=== PATIENT | male | born 1965 | race Caucasian/White ===

== ENCOUNTER 2020-07-25 11:29 | Inpatient (IN) | payer MEDICAID ==
[~2020-07-25] VITALS: Ht 180.3 cm; Wt 92.2 kg
[~2020-07-25 11:29] MED LIST: AMIT25TA10 PO; ARIP15TA3 PO; ASPI-1265 PO; DOCU-28 PO; ENAL-79 PO; FLO0.4C PO; GLIM4TAB7 PO; HCTZ PO; HYDR-3965 PO; HYDR200T84 PO; HYDROXYZINE 25 MG PO; METF500T PO; SIMV-42 PO; TEMA15CA5 PO; TRAZ-251 PO; VENL-190 PO
[2020-07-25] MEDS ORDERED: aspirin 81mg tab.chew PO ONE (11:45)
[2020-07-25] MEDS ORDERED: ondansetron/PF 4mg/2ml inj IV ONE (12:15)
[2020-07-25] MEDS ORDERED: nitroGLYCERIN 0.4mg SUBLingual tab SL PRN ×2 (12:15→13:50)
[2020-07-25] MEDS ORDERED: normal saline 1000ML IV soln IVB ONE (12:15)
[2020-07-25] MEDS ORDERED: iohexol 350MG/ML 100ml bottle IV ONE (12:15)
[2020-07-25 12:23] LABS: BASOPHILS % (AUTO) 0.2 % (0-1); EOSINOPHILS # (AUTO) 0.1 X10'3 (0-0.9); EOSINOPHILS % (AUTO) 0.8 % (0-6); HEMATOCRIT 47.9 % (42.0-52.0); HEMOGLOBIN 16.3 g/dl (14.0-17.9); LYMPHOCYTES # (AUTO) 1.4 X10'3 (1.1-4.8); LYMPHOCYTES % (AUTO) 12.9 % (21-51); MEAN CORPUSCULAR HEMOGLOBIN 32.8 PG (27.0-31.0); MEAN CORPUSCULAR VOLUME 96.7 FL (78-98); MEAN PLATELET VOLUME 7.1 FL (7.4-10.4); MONOCYTES # (AUTO) 0.7 X10'3 (0-0.9); MONOCYTES % (AUTO) 6.2 % (2-12); NEUTROPHILS # (AUTO) 8.9 X10'3 (1.8-7.7); NEUTROPHILS % (AUTO) 79.9 % (42-75); PLATELET COUNT 371 X10'3 (140-440); RED BLOOD COUNT 4.95 X10'6 (4.70-6.10); RED CELL DISTRIBUTION WIDTH 13.2 % (11.5-14.5); WHITE BLOOD COUNT 11.2 X10'3 (4.5-11.0)
[2020-07-25 12:33] LABS: ALANINE AMINOTRANSFERASE 25 U/L (12-78); ALBUMIN 4.4 G/DL (3.4-5.0); ALBUMIN/GLOBULIN RATIO 1.4 (1.1-1.5); ALKALINE PHOSPHATASE 75 IU/L (46-116); ANION GAP 7 (8-16); ASPARTATE AMINO TRANSFERASE 21 U/L (10-37); BILIRUBIN,TOTAL 1.1 MG/DL (0.1-1.0); BLOOD UREA NITROGEN 20 MG/DL (7-18); BUN/CREATININE RATIO 16.7 (5.4-32.0); CALCIUM 9.7 MG/DL (8.5-10.1); CHLORIDE 101 MMOL/L (99-107); GLUCOSE 192 MG/DL (70-104); POTASSIUM 3.7 MMOL/L (3.5-5.1); SODIUM 138 MMOL/L (135-145); TOTAL CARBON DIOXIDE 29.8 MMOL/L (24-32); TOTAL PROTEIN 7.5 G/DL (6.4-8.2); eGFR 63 ML/MIN
[2020-07-25] MEDS ORDERED: magnesium hydroxide 30ml (MOM) UD suspension PO PRN (13:50)
[2020-07-25] MEDS ORDERED: acetaminophen 325mg tablet PO PRN ×2 (13:50)
[2020-07-25] MEDS ORDERED: ondansetron/PF 4mg/2ml inj IV PRN (13:50)
[2020-07-25] MEDS ORDERED: morphine 2 MG/ML inj. syringe IV PRN (13:50)
[2020-07-25] MEDS ORDERED: mag hydrox/Alum hydrox/simeth 30ml oral suspension PO PRN (13:50)
[2020-07-25] MEDS ORDERED: HYDROcodone/acetaminophen 5mg/325mg tablet PO PRN (13:50)
[2020-07-25] MEDS ORDERED: HYDROcodone/acetaminophen 10/325mg tab PO PRN (13:50)
[2020-07-25] MEDS ORDERED: nitroGLYCERIN-Tridil 50MG/D5W 250 ML IV SCH (14:05)
[2020-07-25] MEDS ORDERED: MESSAGE TO PHARMACY PO ONE (14:10)
[2020-07-25] MEDS ORDERED: dextrose 50%-water 50ml dispensing syringe IV PRN ×2 (14:10)
[2020-07-25] MEDS ORDERED: dextrose ORAL solution 15 GM/59 ML bottle PO PRN ×2 (14:10)
[2020-07-25] MEDS ORDERED: glucagon, human recombinant 1mg kit SUBCUT PRN (14:10)
[2020-07-25] MEDS ORDERED: insulin Lispro (HumaLOG) vial - multi-dose SQ SCH (14:10)
[2020-07-25] MEDS ORDERED: SIMV40TA PO (14:13)
[2020-07-25] MEDS ORDERED: NAPR-56 PO (14:13)
[2020-07-25] MEDS ORDERED: NITR0.4T48 SL (14:13)
[2020-07-25] MEDS ORDERED: HYDR12.55 PO (14:13)
[2020-07-25] MEDS ORDERED: FOLI0.4T2 PO (14:13)
[2020-07-25] MEDS ORDERED: VITAMIN D 5000 UNITS PO (14:13)
[2020-07-25] MEDS ORDERED: METH2.5T PO (14:13)
[2020-07-25] MEDS ORDERED: OMEP20TA23 PO (14:14)
--- NOTE | 2020-07-25 15:00 | NUR ---
NITROGLYCERIN DRIP STARTED AND INFUSING WELL AT 5 MCG/MIN.
[2020-07-25] MEDS: morphine 2 MG/ML inj. syringe IV PRN ×3 (15:18→23:24)
[2020-07-25] MEDS ORDERED: CHOL500050 PO (16:11)
[2020-07-25] MEDS ORDERED: INSU100I31 SQ (16:11)
[2020-07-25 20:00] VITALS: BP 116/69
[2020-07-25] MEDS: insulin glargine (Lantus) pen - multi-dose SQ SCH (21:00)
[2020-07-25 22:00] VITALS: BP 121/71
[2020-07-26] VITALS (12 sets, daily range): BP systolic 109–162; BP diastolic 63–90
[2020-07-26 03:06] LABS: BASOPHILS % (AUTO) 0.5 % (0-1); EOSINOPHILS # (AUTO) 0.3 X10'3 (0-0.9); EOSINOPHILS % (AUTO) 3.2 % (0-6); HEMATOCRIT 43.6 % (42.0-52.0); HEMOGLOBIN 14.8 g/dl (14.0-17.9); LYMPHOCYTES % (AUTO) 25.9 % (21-51); MEAN CORPUSCULAR HEMOGLOBIN 32.9 PG (27.0-31.0); MEAN CORPUSCULAR HGB CONC 33.8 g/dL (33.0-36.5); MEAN CORPUSCULAR VOLUME 97.3 FL (78-98); MEAN PLATELET VOLUME 7.1 FL (7.4-10.4); MONOCYTES # (AUTO) 0.7 X10'3 (0-0.9); MONOCYTES % (AUTO) 8.7 % (2-12); NEUTROPHILS # (AUTO) 4.8 X10'3 (1.8-7.7); NEUTROPHILS % (AUTO) 61.7 % (42-75); PLATELET COUNT 275 X10'3 (140-440); RED BLOOD COUNT 4.49 X10'6 (4.70-6.10); RED CELL DISTRIBUTION WIDTH 13.1 % (11.5-14.5); WHITE BLOOD COUNT 7.9 X10'3 (4.5-11.0)
[2020-07-26 03:19] LABS: ALBUMIN 3.5 G/DL (3.4-5.0); ANION GAP 8 (8-16); BLOOD UREA NITROGEN 17 MG/DL (7-18); BUN/CREATININE RATIO 19.5 (5.4-32.0); CALCIUM 8.8 MG/DL (8.5-10.1); CHLORIDE 105 MMOL/L (99-107); CHOL/HDL RATIO 2.3 (0.00-4.99); CHOLESTEROL 98 MG/DL (0-200); CREATININE 0.87 MG/DL (0.60-1.10); GLUCOSE 126 MG/DL (70-104); HDL CHOLESTEROL 42 MG/DL (35-60); LDL CHOLESTEROL 42 MG/DL (50-100); POTASSIUM 3.7 MMOL/L (3.5-5.1); SODIUM 140 MMOL/L (135-145); TOTAL CARBON DIOXIDE 27.3 MMOL/L (24-32); TRIGLYCERIDES 121 MG/DL (20-135); eGFR > 90 ML/MIN
[2020-07-26] MEDS: morphine 2 MG/ML inj. syringe IV PRN ×2 (04:33→09:09)
--- NOTE | 2020-07-26 04:43 | NUR ---
REQUEST FOR ANXIETY MEDICATION PAGER ID: [phone] MESSAGE: [id number] MICHEAL KNOTT-HAVING ANXIETY, PANIC ATTACK SYMPTOMS-HAS TAKEN DIAZEPAM IN PAST- IS AT [facility]-CAN WE GET SOMETHING FOR ANXIETY PLEASE? DANIKA [address] [facility]
[2020-07-26] MEDS ORDERED: LORazepam 2 mg/ml vial IV PRN (04:45)
--- NOTE | 2020-07-26 06:18 | NUR ---
Problems reprioritized. Patient report given, questions answered & plan of care reviewed with Heraclio HIGHTOWER.
--- NOTE | 2020-07-26 07:03 | NUR ---
Patient in room PCU 3025. I have received report from Janis HIGHTOWER and had the opportunity to ask questions and assume patient care.
--- NOTE | 2020-07-26 07:30 | NUR ---
PAGER ID: [phone] MESSAGE: [id number] Ab Arechiga - Pls review med rec. Thank you
[2020-07-26] MEDS ORDERED: aspirin 81mg tablet.DR PO SCH (08:00)
[2020-07-26] MEDS ORDERED: morphine 2 MG/ML inj. syringe IV PRN ×2 (09:41→09:45)
--- NOTE | 2020-07-26 13:50 | NUR ---
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 Offers no complaints. Pt. has discharge orders. Once post op cath/V/S are monitored appropriately, the patient will discharge home accompanied by his brother whom he states is retired and can help him with things that he needs.
[2020-07-26] MEDS ORDERED: OXAZEpam 15mg capsule PO PRN (14:25)
[2020-07-26] MEDS ORDERED: proCHLORperazine 10 MG/2 ml inj IV PRN (14:25)
--- NOTE | 2020-07-26 17:41 | NUR ---
Deflated 3 ml of air, at 1600: Reassessment shows slight bleeding at site. Pt. stated it happened right as he coughed. Reinflated 1 ml per order. No other symptoms noted.
--- NOTE | 2020-07-26 17:41 | NUR ---
Patient tolerated the remaining removal of air from the compression band to right wrist. Compression band removed at 1740. Will continue to monitor site closely. Patients ride will pick him up at 1900 as long as there is no complications post removal of compression band. Oxygen saturations within normal range, no numbness/pain or loss of pulse. Post op vitals are within normal range.
--- NOTE | 2020-07-26 17:50 | NUR ---
Re-assessment of right wrist post removal of band. Noted small hematoma with no active bleeding from insertion site. Re-applied compression band and inserted 1 cc of air per order. Hematoma immediately resolved. Pt. stated, "It feels good." Pt. continues to deny pain, numbness. Pulse is palpable. Oxygen and vital signs are within normal range. Will report to NOC shift.
--- NOTE | 2020-07-26 17:54 | NUR ---
PAGER ID: [phone] MESSAGE: [id number] IESHA White Pt. has yet to discharge, he did not tolerate removal of compression band to right wrist, nursing is continuing to monitor. Esme HIGHTOWER [id number]
--- NOTE | 2020-07-26 18:21 | NUR ---
Problems reprioritized. Patient report given, questions answered & plan of care reviewed with Tuyet HIGHTOWER. Pt. is eating lunch. Assessed right wrist with oncoming nurse. No changes from when 1cc air added back to band. Pt. was in good spirits and offers no complaints at the end of shift.
--- NOTE | 2020-07-26 18:37 | NUR ---
Patient in room PCU 3025. I have received report from Esme HIGHTOWER and had the opportunity to ask questions and assume patient care.
[2020-07-26] MEDS: insulin glargine (Lantus) pen - multi-dose SQ SCH (21:00)
--- NOTE | 2020-07-26 21:00 | NUR ---
Patient DCd to home via private vehicle accompanied by his brother. IV DCd, tele removed, discharge information provided to patient. Patient states he understands and agrees to DC information. Vital signs stable at time of DC. No signs of bleeding or bruising at cath site.
--- NOTE | 2020-07-26 21:15 | NUR ---
Student documentation: I have reviewed and agree with all interventions, assessments performed and documented by Jasmyn AUGUSTE. Student Medication Administration: For this medication-pass time frame, all medication were reviewed, dispensed, administered and documented per hospital policy by Jasmyn AUGUSTE.
== END 2020-07-26 21:11 | disposition home or self-care (01) | DRG 192 ==
LOC: ER 11:30 → ED HOLD 13:47 → PCU 3S 19:40
PROVIDERS: ADMIT Internal Medicine; ATTEND Internal Medicine
PROC: B32T1ZZ Computerized Tomography (CT Scan) of Left Pulmonary Artery using Low Osmolar Contrast (ICD-10-PCS; 2020-07-25)
PROC: B3201ZZ Computerized Tomography (CT Scan) of Thoracic Aorta using Low Osmolar Contrast (ICD-10-PCS; 2020-07-25)
PROC: B32S1ZZ Computerized Tomography (CT Scan) of Right Pulmonary Artery using Low Osmolar Contrast (ICD-10-PCS; 2020-07-25)
PROC: B4201ZZ Computerized Tomography (CT Scan) of Abdominal Aorta using Low Osmolar Contrast (ICD-10-PCS; 2020-07-25)
PROC: 4A023N7 Measurement of Cardiac Sampling and Pressure, Left Heart, Percutaneous Approach (ICD-10-PCS; principal; 2020-07-26)
PROC: B2111ZZ Fluoroscopy of Multiple Coronary Arteries using Low Osmolar Contrast (ICD-10-PCS; 2020-07-26)
DX: R07.9 Chest pain, unspecified (principal); E11.9 Type 2 diabetes mellitus without complications; E78.5 Hyperlipidemia, unspecified; F12.90 Cannabis use, unspecified, uncomplicated; I10 Essential (primary) hypertension; G47.00 Insomnia, unspecified; F32.9 Major depressive disorder, single episode, unspecified; N40.0 Benign prostatic hyperplasia without lower urinary tract symptoms; Z79.4 Long term (current) use of insulin; Z79.82 Long term (current) use of aspirin; Z79.899 Other long term (current) drug therapy; Z87.891 Personal history of nicotine dependence
CPT/HCPCS: 36415; 71045; 71275; 74174; 80048; 80053; 80061; 82948; 83036; 83880; 84484; 85025; 87081; 93005; 93458; 96361; 96374; 99152; 99285; A4620; A5120; C1769; C1894; G0378; J1644; J1815; J2001; J2060; J2250; J2270; J2405; J3010; J3490; J7030; Q9967